=== PATIENT | male | born 2000 | race Caucasian/White ===

== ENCOUNTER 2019-10-07 15:54 | Inpatient (IN) | payer BC, SELFPAY ==
[2019-10-07 16:03] VITALS: BP 127/69; PULSE 79; RESP 16; TEMP 36.5
[2019-10-07] MEDS: Acetaminophen 500 MG TAB 1000 MG PO (16:23)
--- NOTE | 2019-10-07 16:27 | DI.RAD_ITS ---
EXAM: XR CLAVICLE LT INDICATION: pain, fall. COMPARISON: No exams were available for comparison TECHNIQUE: 2D digital imaging was performed. FINDINGS: There is a fracture of the mid to distal clavicle. There are comminuted fragments and mild displacem ent and inferior angulation. The AC joint and glenohumeral joint appear intact. The visualized port ions of the left ribs appear intact. IMPRESSION: Comminuted mildly displaced fracture of the mid clavicle.
--- NOTE | 2019-10-07 16:30 | DI.RAD_ITS ---
EXAM: XR SHOULDER LT COMPLETE 2+V INDICATION: pain, fall. COMPARISON: No exams were available for comparison TECHNIQUE: 2D digital imaging was performed. FINDINGS: There is a fracture at the mid to distal 3rd of the clavicle which shows a comminuted fragment and mi ld displacement. The glenohumeral joint appears intact. The visualized portions of the left ribs ap pear intact. No pneumothorax is seen. IMPRESSION: Comminuted fracture of the mid to distal clavicle.
--- NOTE | 2019-10-07 17:00 | DI.VRAD_ITS ---
PROCEDURE INFORMATION: Exam: XR Left Clavicle, Complete Exam date and time: 10/07/2019 4:32 PM Age: 19 years old Clinical indication: Other: Pain, fall TECHNIQUE: Imaging protocol: XR Left clavicle complete. Any number of views. COMPARISON: No relevant prior studies available. FINDINGS: Bones/joints: Comminuted fracture of the mid clavicle with angulation. Soft tissues: Normal. IMPRESSION: Comminuted fracture of the mid clavicle with angulation. Dictated and Authenticated by: Paige Frank MD. Ordering:KOREY Blackmon MD
--- NOTE | 2019-10-07 17:03 | DI.VRAD_ITS ---
PROCEDURE INFORMATION: Exam: XR Left Shoulder Exam date and time: 10/07/2019 4:33 PM Age: 19 years old Clinical indication: Other: Pain, fall TECHNIQUE: Imaging protocol: XR Left shoulder. Views: 2 or more views. COMPARISON: No relevant prior studies available. FINDINGS: Bones/joints: Midclavicular comminuted fracture. Intact humerus and scapula. Soft tissues: Normal. IMPRESSION: Midclavicular comminuted fracture Dictated and Authenticated by: Paige Frank MD. Ordering:KOREY Blackmon MD
[2019-10-07 18:54] VITALS: BP 129/73; PULSE 83; RESP 16; TEMP 37; O2SAT 98
[2019-10-07 19:11] VITALS: BP 122/80; PULSE 70; RESP 18; TEMP 37.2; O2SAT 97
[2019-10-07 20:03] VITALS: BP 122/80; PULSE 70; RESP 18; TEMP 37.2; O2SAT 97
--- NOTE | 2019-10-07 20:08 | W.PM.HP.N ---
Date of service: 10/07/19 Time of Service: 20:08 Assessment and Plan Assessment and plan (1) Clavicle fracture, shaft: Status: Acute Assessment and plan: 19-year-old male with significantly displaced and comminuted left midshaft clavicle fracture. Concern for skin tenting. Patient admitted for planned left clavicle surgery ORIF. N.p.o. after midnight with IV fluids. Preoperative antibiotics ordered on-call to the OR. Multimodal pain management ordered. Sling in place for left upper extremity. May remove sling while in chair or in bed. May elevate left forearm on pillow. Otherwise up ad shey. Patient counseled regarding the need to reduce nicotine use to optimize bone healing. The risks, benefits, and alternatives were thoroughly discussed with the patient and his entire family. Patient was counseled regarding pain management, expected postoperative course, and recovery timeline. All questions were answered. Informed consent will be obtained tomorrow morning in the operative holding room area. All parties agree and understand treatment plan. Qualifiers: Encounter type: initial encounter Fracture type: closed Fracture alignment: displaced Laterality: left Qualified Code(s): S42.022A - Displaced fracture of shaft of left clavicle, initial encounter for closed fracture History of Present Illness History of Present Illness Chief Complaint: Left collarbone pain Narrative: Chief Complaint: Collarbone pain HPI: 19-year-old male snowboarding at [employer] today with crash onto left shoulder. Sudden onset, severe left collarbone pain and deformity. Did not hit his head or neck. No other parts of body injured. Denies any numbness tingling or paresthesias in the left upper extremity. Noted bony prominence underneath the collarbone skin. Resented to the emergency room at [facility] for evaluation. prior injury: No attempted treatments: Sling immobilization numbness/tingling: Denies prior imaging: X-rays done in emergency room PMH: Negative diabetes: Denies allergies: NKDA. Shellfish causes airway swelling FH: non-contributory SH: hand dominance: Right occupation: [employer] smoke cigarettes: No, but uses nicotine while vaping. Working on quitting. Review of Systems Constitutional Constitutional: Denies chills and Denies fever(s) Eyes Eyes: Denies diplopia and Denies loss of vision ENT Ears, Nose, Mouth, and Throat: Denies dental pain and Denies other (cavities) Cardiovascular Cardiovascular: Denies chest pain with activity, Denies irregular heart rhythm and Denies dyspnea Respiratory Respiratory: Denies cough and Denies dyspnea Gastrointestinal Gastrointestinal: Denies nausea and Denies vomiting Musculoskeletal Musculoskeletal: Reports as per HPI Integumentary/Breasts Skin/Breast: Denies rash and Denies wounds Neurologic Neurologic: Reports as per HPI and Denies loss of vision Psychiatric Psychiatric: Denies anxiety and Denies depression Hematologic/Lymphatic Hematologic/Lymphatic: Denies easy bleeding and Denies easy bruising Allergic/Immunologic Allergic/Immunologic: Reports as per HPI [facility] Social History Smoking/Tobacco Use Status: Current every day Tobacco Type: e-cigarettes Alcohol Intake: never Drug use: Never Do you feel safe at home: Yes Do you feel safe in your relationship?: Yes Meds Home Medications and Allergies Home Medications Medication Instructions Recorded Confirmed Type Unknown [No Known Home Meds] 06/02/15 10/07/19 History Allergies Allergy/AdvReac Type Severity Reaction Status Date / Time shellfish derived Allergy Intermediate Swelling/Ed Unverified 10/07/19 16:08 augusto Exam Const General: cooperative, comfortable and no acute distress Orientation: alert, awake and not confused Limitations: mental status not altered and no language barrier HENMT Head: normocephalic and atraumatic Neck Neck: normal visual inspection and full ROM Resp Effort & Inspection: normal respiratory effort, able to speak in complete sentences, no audible wheezes and no grunting General: deferred Skin General skin exam: no rashes or lesions noted Neuro General: alert, awake and oriented x3 Cognition: normal cognition Speech: speech normal Extrem Other: Left chest wall with obvious collarbone deformity and moderately prominent medial clavicle spike. Unable to release clavicle from subcutaneous tissue. No skin dimpling. No skin blanching. Skin otherwise intact. Completely neurovascular intact left upper extremity with intact median, radial, ulnar nerves motor and sensory. 2+ radial pulse. Regular rate and rhythm. Psych Appearance: grossly normal Mental Status: mental status grossly normal Speech and Movement: speech and movement normal Affect: normal affect Attitude: cooperative Results Imaging Imaging Studies: Left shoulder x-rays independently reviewed: Negative for acute fracture dislocation of glenohumeral joint. Preserved joint spaces. No superior humeral migration. Left clavicle x-rays independently reviewed: Markedly displaced and comminuted midshaft clavicle fracture. Medial clavicle bone and spike in subcutaneous position. Last Vital Signs Temp 99 F 10/07/19 19:11 Pulse 70 10/07/19 19:11 Resp 18 10/07/19 19:11 BP 122/80 10/07/19 19:11 Pulse Ox 97 10/07/19 19:11
[2019-10-07] MEDS: Acetaminophen 325 MG TAB 650 MG PO (20:23)
--- NOTE | 2019-10-07 21:18 | ED.GENADUL_ITS ---
Discharge Plan Disposition Patient Disposition: [facility] INPATIENT Condition: Good Discharge Details Chief Complaint: Orthopedic Clinical Impression: Clavicle fracture Admit Date/Time: 10/07/19 18:32 Admit Provider: Dave Carson Attending Provider: Dave Carson Primary Care Provider: Cordell Kapadia ED Provider: Lorri Rangel Medical Decision Making This a 19-year-old patient presenting for a left clavicle injury. Patient injured himself prior to arrival while snowboarding, struck a rock fell forward onto his left shoulder. Patient reports an obvious crack and pain noted at the clavicle area. Patient presents to the emergency room with an obvious deformity, tenting of the skin noted. Patient does have mild associated shoulder pain with palpation but no other obvious injury to the extremities specifically no humeral pain, elbow pain, forearm pain, wrist or hand pain. Patient has no neck pain on exam. He was not wearing his helmet however denies any associated head injury symptoms at this time. Offered Tylenol for soreness. Distal neurovascularly intact X-rays ordered X-rays reveal a midclavicular left clavicle fracture with no associated shoulder abnormalities. Discussed with orthopedic surgeon, Dr. Carson, who recommends admission to the hospital overnight and he will repair patient's fracture tomorrow. Sling encouraged. Patient is allowed to eat dinner but would be kept n.p.o. after midnight. Spoke with patient as well as his parents who agree with plan of care. HPI General Date/Time Provider Initiated Documentation: 10/07/19 16:19 . HPI Narrative: Is a 19-year-old patient presenting to the emergency room after a fall snowboarding prior to arrival. Patient reports he fell approximately 1-1/2 hours prior to arrival. He reports falling forward after hitting a rock landing on his left shoulder. Patient presents with an obvious deformity to his left clavicle concern for possible clavicle fracture. Patient denies any other sites of pain or concerns. Patient was not wearing his helmet. Patient denies striking his head. Denies headache, dizziness, nausea, vomiting, vision change, blurred vision or double vision. No tinnitus. Patient denies any ill feeling whatsoever. Denies any neck or back pain. Patient reports no right arm complaints. Ambulated without difficulty. Denies lower extremity complaints. Patient denies numbness, tingling or weakness of upper or lower extremities. No chest pain, difficulty no shortness breath or wheezing. No abdominal complaints. No other concerns complaints. Related Data Home Medications Medication Instructions Recorded Confirmed Unknown [No Known Home Meds] 06/02/15 10/07/19 Allergies Allergy/AdvReac Type Severity Reaction Status Date / Time shellfish derived Allergy Intermediate Swelling/Ed Unverified 10/07/19 16:08 augusto General Stated Complaint: Orthopedic CHANI: 4 Review of Systems All systems reviewed & are unremarkable except as noted in HPI and below ENT Ears, Nose, Mouth, and Throat: Denies neck pain Cardiovascular Cardiovascular: Denies chest pain and Denies dyspnea Respiratory Respiratory: Denies cough, Denies pain with cough and Denies dyspnea Gastrointestinal Gastrointestinal: Denies abdominal pain Musculoskeletal Musculoskeletal: Denies abnormal gait, Denies back pain, Denies neck pain, Denies numbness and Denies tingling Integumentary/Breasts Skin/Breast: Denies wounds Neurologic Neurologic: Denies abnormal gait, Denies numbness and Denies tingling [facility] Social History Smoking/Tobacco Use Status: Current every day Tobacco Type: e-cigarettes Alcohol Intake: never Drug use: Never Do you feel safe at home: Yes Do you feel safe in your relationship?: Yes Exam Narrative Exam Narrative: CONST: Healthy appearing patient, in no acute distress. Well hydrated. Alert and oriented. HENMT: Head nomocephalic, normal to inspection. Atraumatic. Hearing grossly normal. EYES: General normal appearance. Alignment normal. Eyelids normal. Conjunctiva normal. NECK: Normal visual inspection. FROM. Trachea midline. No Midline tenderness. CHEST: Normal insepection of the chest. Obvious area of swelling noted over the left clavicle. Tenting of the skin noted with overlying skin which is freely mobile. No ecchymosis, no open wound RESP: Normal respiratory effort. Speaking full sentences. No cough. No audible wheezing. No retractions. Breath sounds are clear, full and equal bilaterally. No rales, rhonchi or wheezing. CARDIO: No JVD. No murmur. Regular rate and rhythm MUSCULOSKELETAL: Normal Gait. Full range of motion of right upper extremity as well as bilateral lower extremities. Limited range of motion of left arm due to pain at the shoulder and clavicle. Patient has an obvious area of deformity noted to the left mid clavicle. Obvious tenderness at that site. No significant left shoulder pain with palpation. No humeral pain with palpation of elbow pain with palpation. Supination pronation intact at the left elbow. No forearm pain with palpation, wrist pain with palpation. Full range of motion of wrist. Ball Thread Machine Tender strength intact bilaterally. Pulses intact and symmetrical bilaterally SKIN: Normal. Dry. No rashes. Course Vital Signs Vital signs: Vital Signs Temperature 36.5 C 10/07/19 16:03 Pulse 79 10/07/19 16:03 Respiratory Rate 16 10/07/19 16:03 Blood Pressure 127/69 10/07/19 16:03 Temperature 37.2 C 10/07/19 20:03 Temperature Source Tympanic 10/07/19 19:11 Pulse 70 10/07/19 20:03 Pulse Rhythm Regular 10/07/19 20:03 Respiratory Rate 18 10/07/19 20:03 Respiratory Effort Non-Labored 10/07/19 20:03 Respiratory Depth Shallow 10/07/19 20:03 Respiratory Pattern Normal 10/07/19 20:03 Blood Pressure 122/80 10/07/19 20:03 Blood Pressure Position Sitting 10/07/19 16:03 Pulse Oximetry 97 10/07/19 20:03 Oxygen Delivery Method Room Air 10/07/19 20:03 Oxygen Flow Rate 0 10/07/19 20:03 Pain Level 5 10/07/19 20:23
[2019-10-07] MEDS: Normal Saline 1,000 ML 30 ML IV (23:36)
[2019-10-07 23:42] VITALS: BP 126/64; PULSE 63; RESP 18; TEMP 36.7; O2SAT 99
[2019-10-08] VITALS (8 sets, daily range): BP systolic 85–131; BP diastolic 31–75; PULSE 53–66; RESP 13–24; TEMP 36.6–36.9; O2SAT 96–100
[2019-10-08] MEDS: ceFAZolin 2 GM/50 ML BAG IVPB (10:39)
--- NOTE | 2019-10-08 10:45 | DSE_ITS ---
Date of service: 10/08/19 Time of Service: 12:58 DS: Diagnosis Discharge Diagnosis (1) Clavicle fracture, shaft: Status: Acute Discharge Plan Disposition Patient Disposition: HOME Condition: Good Discharge Details Chief Complaint: Orthopedic Clinical Impression: Clavicle fracture Reason For Visit: CLAVICLE FX Admit Date/Time: 10/07/19 18:32 Admit Provider: Dave Carson Attending Provider: Dave Carson Primary Care Provider: Cordell Kapadia ED Provider: Lorri Rangel Hospital Course Hospital Course: Admitted via emergency room for tenting left displaced midshaft clavicle fracture. Underwent operative fixation. Postoperative course uncomplicated. Home Meds and New Rx's Prescriptions: New naproxen 250 mg tablet 250 - 500 mg PO BID PRN (Reason: pain, moderate) Qty: 60 RF: 0 aspirin 81 mg tablet,delayed release (DR/EC) 81 mg PO DAILY 14 Days Qty: 14 RF: 0 ondansetron 4 mg tablet,disintegrating 4 mg PO Q6H PRN (Reason: nausea or vomiting) Qty: 5 RF: 0 oxycodone 5 mg tablet 5 - 10 mg PO Q4H PRN (Reason: moderate to severe pain) Qty: 22 RF: 0 Discharge Instructions Additional Instructions: Surgery: Left clavicle open reduction internal fixation Activity: Nonweightbearing left upper extremity in sling when out of the house. Otherwise remove sling and rest arm and elevate on pillows for comfort. May use left upper extremity for all regular activities of daily living. No heavy lifting or reaching overhead. A physical therapy prescription will be provided separately in the office at follow-up if necessary. Prescriptions: Aspirin 81 mg take 1 daily to prevent a blood clot for 2 weeks Naproxen 250 mg take 1-2 every 12 hours with a meal as needed for moderate pain Oxycodone 5 mg take 1-2 every 4-6 hours as needed for severe pain You may use [id number] Tylenol (acetaminophen) as needed for mild pain. These pain medications may be taken all at once or in different combinations as needed. Also, recommend Colace (docusate) as a stool softener as surgery and pain medicine cause constipation. Dressings: Leave splint and dressing in place until follow-up. Keep clean and dry at all times. Follow-up: 10-[address] Carson Please call the office during business hours with any questions or concerns. Let us know right away if you develop any redness, drainage, fevers, chest pain, or trouble breathing. Do not drink alcohol or drive for at least 24 hours after anesthesia. Referrals: Dave Carson MD [ [facility] STAFF PHYSICIAN] - Activity:: As above Equipment/Supplies:: Sling Diet:: As Tolerated DS: Summary Summary Time spent discussing smoking cessation with patient: 3 to 10 minutes Status at Discharge Functional status at discharge: independent ambulation Overall status at discharge: patient is progressing back to baseline Mental Status: mental status grossly normal Speech and Movement: speech and movement normal Mood: congruent mood Affect: normal affect Exam Narrative Exam Narrative: CONST: Healthy appearing patient, in no acute distress. Well hydrated. Alert and oriented. HENMT: Head nomocephalic, normal to inspection. Atraumatic. Hearing grossly normal. EYES: General normal appearance. Alignment normal. Eyelids normal. Conjunctiva normal. NECK: Normal visual inspection. FROM. Trachea midline. No Midline tenderness. CHEST: Normal insepection of the chest. Obvious area of swelling noted over the left clavicle. Tenting of the skin noted with overlying skin which is freely mobile. No ecchymosis, no open wound RESP: Normal respiratory effort. Speaking full sentences. No cough. No audible wheezing. No retractions. Breath sounds are clear, full and equal bilaterally. No rales, rhonchi or wheezing. CARDIO: No JVD. No murmur. Regular rate and rhythm MUSCULOSKELETAL: Normal Gait. Full range of motion of right upper extremity as well as bilateral lower extremities. Limited range of motion of left arm due to pain at the shoulder and clavicle. Patient has an obvious area of deformity noted to the left mid clavicle. Obvious tenderness at that site. No significant left shoulder pain with palpation. No humeral pain with palpation of elbow pain with palpation. Supination pronation intact at the left elbow. No forearm pain with palpation, wrist pain with palpation. Full range of motion of wrist. Switchboard Operator Receptionist strength intact bilaterally. Pulses intact and symmetrical bilaterally SKIN: Normal. Dry. No rashes. Psych Mental Status: mental status grossly normal Speech and Movement: speech and movement normal Mood: congruent mood Affect: normal affect DS: Data Vitals/I&O Vitals and I&O: Vital Signs Temperature 98.1 F 01/17/20 07:39 Temperature Source Tympanic 10/08/19 07:39 Pulse 60 10/08/19 07:39 Pulse Rhythm Regular 10/08/19 02:54 Respiratory Rate 17 10/08/19 07:39 Respiratory Effort Non-Labored 10/08/19 02:54 Respiratory Depth Normal 10/08/19 02:54 Respiratory Pattern Normal 10/08/19 02:54 Blood Pressure 129/75 10/08/19 07:39 Blood Pressure Position Sitting 10/07/19 16:03 Pulse Oximetry 99 10/08/19 07:39 Oxygen Delivery Method Room Air 10/08/19 07:39 Oxygen Flow Rate 0 10/08/19 07:39 Pain Level 5 10/08/19 07:39 Intake & Output 10/07/19 10/07/19 10/08/19 11:59 23:59 11:59 Intake Total 0 / 0 Balance 0 / 0 Weight 155 lb Intake: Oral 0 / 0 Other: Urine Appearance Clear Clear PFSH Social History Smoking/Tobacco Use Status: Current every day Tobacco Type: e-cigarettes Alcohol Intake: never Drug use: Never Do you feel safe at home: Yes Do you feel safe in your relationship?: Yes
--- NOTE | 2019-10-08 12:35 | DI.RAD_ITS ---
EXAM: XR CLAVICLE LT CLINICAL HISTORY: left clavicle fx/ORIF. TECHNIQUE: 2D and realtime digital imaging was performed. Fluoro time: 30 sec COMPARISON: XR CLAVICLE LT from 10/07/2019 FINDINGS: Fluoroscopy was provided in the OR for Dr. Carson. Hard copy images show placement of a fixation dillan te across the mid clavicle fracture.
--- NOTE | 2019-10-08 12:58 | W.PM.OP ---
Date of service: 10/08/19 Time of Service: 12:47 Operative Note Operative Note DATE OF PROCEDURE: 10/08/19 PRE-OP DIAGNOSIS: Left midshaft markedly displaced and comminuted clavicle fracture POST-OP DIAGNOSIS: same PROCEDURE: Left clavicle ORIF SURGEON: Dave Carson MEDICAL RECEPTION SPECIALIST: Jenna Sabillon ANESTHESIA: GETA and local ESTIMATED BLOOD LOSS: 10 COMPLICATIONS: None Patient was transported to: PACU Patient's condition: stable Implants: Synthes 3.5 mm LCP superior clavicle plate system Indications: Please see complete medical record for details. Procedure Description: The patient was taken to the operating room and transferred to the operating room table. Anesthesia was induced. All bony prominences were well-padded. Preoperative antibiotics were administered. The left clavicle was prepped and draped in the usual sterile fashion. The correct patient, procedure, and side of the procedure were all verified prior to incision. The fracture site was localized under fluoroscopic guidance. 0.25% bupivacaine with epinephrine was infiltrated about the clavicle and platysma. Sharp dissection was carried full-thickness down to the superior anterior clavicle. The fracture site was identified subcutaneously. Hand instruments and bone reduction forceps were used to clean the fracture fragments and reduce the fragments to themselves under direct visualization. The lateral anterior comminution was lag to the lateral fragment with a 2.4 mm cortex screw. The inferior comminution was unable to be positioned for appropriate lag screw from the medial fragment. An appropriate length superior clavicle plate was selected and provisionally held the superior clavicle with K wires. AP and axial fluoroscopy confirmed appropriate plate position and fracture reduction. Compression screws were placed medial and lateral to the fracture site to compress the plate down to bone. K wires removed. The remainder of the screw holes were fixated with locking screws. The lateral compression screw was then switched for appropriate length locking screw. Suture tape was then passed around the inferior bone comminution and secured around the fracture site and plate with a knot tied anteriorly. Final AP and axial fluoroscopy confirmed excellent fracture site reduction and appropriate placement of our hardware and screw lengths. The wound was copiously irrigated with normal saline. Deep tissue and platysma was closed using 2-0 Monocryl in buried fashion. The skin was closed with 3-0 Monocryl in a running subcuticular fashion. Skin glue was applied over the incision followed by Telfa dry 4 x 4 gauze Mastisol and Tegaderm dressing. Patient will from anesthesia without complication was taken recovery room in stable condition.
== END 2019-10-08 15:05 | disposition home or self-care (01) | DRG 517 ==
LOC: ER 18:38 → MS 19:07
PROVIDERS: Admitting Provider Student in an Organized Health Care Education/Training Program; Emergency Provider Physician Assistant; PCP Internal Medicine; Visit Provider Student in an Organized Health Care Education/Training Program
PROC: 2W1QX7Z Compression of Right Lower Leg using Intermittent Pressure Device (ICD-10-PCS; CPT 23515; principal; 2019-10-08 11:15)
DX: S42.022A Displaced fracture of shaft of left clavicle, initial encounter for closed fracture (principal); V00.311A Fall from snowboard, initial encounter; Y93.23 Activity, snow (alpine) (downhill) skiing, snowboarding, sledding, tobogganing and snow tubing; F17.290 Nicotine dependence, other tobacco product, uncomplicated
CPT/HCPCS: 23515; 99223; 99285; NC; 73000; 73030; 99284; J0690; J1100; J1885; J2250; J2405; J2704; L3650

== ENCOUNTER 2019-10-19 13:39 | Outpatient (CLI) | payer BC, SELFPAY ==
--- NOTE | 2019-10-19 14:07 | DI.RAD_ITS ---
EXAM: XR CLAVICLE LT INDICATION: F/U FRACTURE. COMPARISON: XR CLAVICLE LT from 10/08/2019 TECHNIQUE: 2D digital imaging was performed. FINDINGS: A fixation plate is again noted across the comminuted clavicular fracture. The alignment appears unc hanged.
== END 2019-10-19 13:59 ==
PROVIDERS: PCP Internal Medicine; Visit Provider Student in an Organized Health Care Education/Training Program
DX: S42.022D Displaced fracture of shaft of left clavicle, subsequent encounter for fracture with routine healing (principal)
CPT/HCPCS: 73000

== ENCOUNTER 2019-11-30 13:44 | Outpatient (CLI) | payer BC, SELFPAY ==
--- NOTE | 2019-11-30 13:30 | DI.RAD_ITS ---
EXAM: XR CLAVICLE LT CLINICAL HISTORY: FOLLOW UP TECHNIQUE: 2D digital imaging was performed. COMPARISON: XR CLAVICLE LT from 10/19/2019 FINDINGS: BONES: There has been no change in alignment of the sideplate and screws transfixing the fracture of the midshaft of the left clavicle. JOINTS: No dislocation present. SOFT TISSUE: Normal. IMPRESSION: Stable postsurgical changes of the left clavicle. DATA REPOSITORY: RADIATION DOSE DELIVERED:
== END 2019-11-30 14:04 ==
PROVIDERS: PCP Internal Medicine; Visit Provider Student in an Organized Health Care Education/Training Program
DX: S42.022D Displaced fracture of shaft of left clavicle, subsequent encounter for fracture with routine healing (principal)
CPT/HCPCS: 73000

== ENCOUNTER 2020-01-12 10:42 | Outpatient (CLI) | payer BC, SELFPAY ==
--- NOTE | 2020-01-12 08:45 | DI.RAD_ITS ---
EXAM: XR CLAVICLE LT LIMITED 1V CLINICAL HISTORY: fu fracture TECHNIQUE: 2D digital imaging was performed. COMPARISON: XR CLAVICLE LT from 10/19/2019 XR CLAVICLE LT from 11/30/2019 FINDINGS: A screw and plate fixation is again noted along the clavicle for fracture fixation. There has been continued healing of the clavicle fracture which is unchanged in alignment. The AC joint is intact.
== END 2020-01-12 11:02 ==
PROVIDERS: PCP Internal Medicine; Visit Provider Student in an Organized Health Care Education/Training Program
DX: S42.022D Displaced fracture of shaft of left clavicle, subsequent encounter for fracture with routine healing (principal)
CPT/HCPCS: 73000

== ENCOUNTER 2021-01-09 16:01 | Outpatient (CLI) | payer BC, SELFPAY ==
--- NOTE | 2021-01-09 15:00 | DI.RAD_ITS ---
EXAM: XR CLAVICLE LT CLINICAL HISTORY: f/u TECHNIQUE: COMPARISON: CR XR CLAVICLE LT LIMITED 1V from 01/12/2020 FINDINGS: Two views were obtained. Previously described plate and screw fixation of mid clavicular fracture is again noted. Alignment appears unchanged in comparison with previous examination December 2019. IMPRESSION: RADIATION DOSE DELIVERED: Total DLP
== END 2021-01-09 16:02 | disposition home or self-care (01) ==
LOC: DIORS 16:01
PROVIDERS: PCP Internal Medicine; Referring Provider Internal Medicine; Visit Provider Student in an Organized Health Care Education/Training Program
DX: S42.022D Displaced fracture of shaft of left clavicle, subsequent encounter for fracture with routine healing (principal)
CPT/HCPCS: 73000